=== PATIENT | female | born 1975 | race American Indian/Alaskan Native ===

== ENCOUNTER 2020-01-26 10:24 | Outpatient (CLI) | payer OTHER ==
--- NOTE | 2020-01-26 16:15 | Mammography Report ---
DIGITAL SCREENING MAMMOGRAM WITH CAD, 01/26/2020 INDICATION: Routine screening mammography. TECHNIQUE: Digital bilateral 2D mammography was obtained in the craniocaudal and mediolateral obliq ue projections and with implant displacement. This examination was interpreted with the benefit of Co mputer-Aided Detection analysis. COMPARISON: None available. FINDINGS: Breast Density: The breasts are heterogeneously dense, which may obscure small masses. There is no evidence of dominant mass, suspicious calcifications or architectural distortion in eithe r breast. Bilateral subglandular implants in place. IMPRESSION: No mammographic evidence of malignancy. Follow up recommendation: Routine yearly BI-RADS Category 2: Benign. A "normal" or negative report should not discourage follow up or biopsy of a clinically significant f inding. A written summary of these findings will be mailed to the patient. The patient will be entered into a mammography reporting system which will generate a reminder letter for the patient's next appointmen t at the appropriate interval. The [employer] recommends yearly mammograms starting at age 40 and continuing as l lacie as a woman is in good health. Breast MRI is recommended for women with an approximate 20-25% or greater lifetime risk of breast cancer, including women with a strong family history of breast or ova seema cancer or who have been treated for Hodgkin's disease. Signer Name: Higinio Welch MD Signed: 01/26/2020 4:10 PM Workstation Name: [id number]
== END 2020-01-26 10:25 | disposition home or self-care (01) ==
LOC: SPVWC 10:24
PROVIDERS: ATTEND Family Medicine
DX: Z12.31 Encounter for screening mammogram for malignant neoplasm of breast (principal)
CPT/HCPCS: 77067